=== PATIENT | female | born 1960 | race Two or more races ===

== ENCOUNTER 2021-01-20 21:06 | Inpatient (IN) | payer OTHER ==
[~2021-01-20] VITALS: Ht 160 cm; Wt 65.0 kg
[2021-01-20] MEDS ORDERED: SODIUM CHLORIDE 0.9% 1,000 ML IV ONE ×2 (21:30)
[2021-01-20] MEDS ORDERED: InsuLIN REG 1unit/0.01ml Soln (100units/ml) IV ONE (21:30)
[2021-01-20 22:15] LABS: Basophils # (auto) 0 10 ^3/uL (0-0.2); Basophils % (auto) 0.2 % (0.0-2.0); Eosinophils # (auto) 0 10 ^3/uL (0-0.8); Hematocrit 43.6 % (36.0-46.0); Hemoglobin 15.2 g/dL (12.2-16.2); Lymphocytes # (auto) 1.3 10 ^3/uL (0.4-5.4); Lymphocytes % (auto) 15.4 % (10.0-50.0); Mean Corpuscular Hemoglobin 30.1 pg (28.0-32.0); Mean Corpuscular Volume 86.1 fL (80.0-100.0); Monocytes # (auto) 0.6 10 ^3/uL (0-1.3); Monocytes % (auto) 7.3 % (0.0-12.0); Neutrophils # (auto) 6.4 10 ^3/uL (1.6-8.6); Neutrophils % (auto) 77.1 % (37.0-80.0); Nucleated Red Blood Cells % 0.1 %; Red Blood Cells 5.06 10^6/uL (4.0-5.20); Red Cell Distribution Width 12.9 % (11.8-14.3); White Blood Cell 8.3 10^3/uL (4.4-10.8)
[2021-01-20 22:34] LABS: Chloride 103 mmol/L (98-107); Potassium 3.3 mmol/L (3.5-5.1); Sodium 134 mmol/L (136-145)
[2021-01-20 22:43] LABS: Alanine Aminotransferase 27 U/L (13-56); Albumin 3.1 g/dL (3.4-5.0); Alkaline Phosphatase 170 U/L (45-117); Anion Gap 7 (5-15); Aspartate Aminotransferase 9 U/L (15-37); BUN/Creatinine Ratio 22.9; Bilirubin, Total 0.9 mg/dL (0.2-1.0); Blood Urea Nitrogen 16 mg/dL (7-18); Calcium 9.2 mg/dL (8.5-10.1); Carbon Dioxide 24 mmol/L (21-32); GFR African American 109 mL/min; GFR Non-African American 90 mL/min; Glucose 318 mg/dL (74-106); Lipase 21 U/L (73-393); Magnesium 2.4 mg/dL (1.6-2.6); Total Protein 7.8 g/dL (6.4-8.2)
[2021-01-21] MEDS ORDERED: ALUM & MAG HYDROX-SIMETH LIQ(MAALOX) 30 ML PO PRN (02:15)
[2021-01-21] MEDS ORDERED: TEMAZEPAM 15 MG CAP PO PRN (02:15)
[2021-01-21] MEDS ORDERED: DOCUSATE SOD 100 MG CAP PO PRN (02:15)
[2021-01-21] MEDS ORDERED: LORazepam 0.5 MG TAB PO PRN (02:15)
[2021-01-21] MEDS ORDERED: HYDROcodone-ACET 5/325MG TAB PO PRN (02:15)
[2021-01-21] MEDS ORDERED: ACETAMINOPHEN 325 MG TAB PO PRN (02:15)
[2021-01-21 04:47] LABS: Basophils # (auto) 0 10 ^3/uL (0-0.2); Basophils % (auto) 0.3 % (0.0-2.0); Eosinophils # (auto) 0 10 ^3/uL (0-0.8); Eosinophils % (auto) 0.2 % (0.0-7.0); Hematocrit 46.3 % (36.0-46.0); Lymphocytes # (auto) 1.2 10 ^3/uL (0.4-5.4); Lymphocytes % (auto) 18.7 % (10.0-50.0); Mean Corpuscular Hgb Conc. 34.5 g/dL (32.0-36.0); Monocytes # (auto) 0.5 10 ^3/uL (0-1.3); Monocytes % (auto) 8.1 % (0.0-12.0); Neutrophils # (auto) 4.6 10 ^3/uL (1.6-8.6); Neutrophils % (auto) 72.7 % (37.0-80.0); Nucleated Red Blood Cells % 0.4 %; Red Blood Cells 5.32 10^6/uL (4.0-5.20); White Blood Cell 6.4 10^3/uL (4.4-10.8)
[2021-01-21 05:16] LABS: Calcium 9.5 mg/dL (8.5-10.1)
[2021-01-21 05:22] LABS: BUN/Creatinine Ratio 27.4
[2021-01-21] MEDS: SODIUM CHLORIDE 0.9% 1,000 ML IV SCH ×2 (07:50→18:48)
[2021-01-21] MEDS ORDERED: DEXTROSE (50%) 50ML SYRG IV PRN (12:00)
[2021-01-21] MEDS ORDERED: PANTOPRAZOLE 40 MG TAB PO ONE (12:15)
[2021-01-21] MEDS: ONDANSETRON HCL 4 MG/2 ML VIAL IV PRN (12:39)
[2021-01-21] MEDS ORDERED: MORPHINE SULFATE 10 MG/5 ML ORAL SOLN GT PRN (14:00)
[2021-01-21] MEDS: InsuLIN REG 1unit/0.01ml Soln (100units/ml) SC SCH ×2 (17:10→22:15)
[2021-01-21] MEDS: SUCRALFATE 1 GM/10 ML ORAL SUSP PO SCH ×2 (17:10→22:13)
[2021-01-21] MEDS: ACCU-CHEK COMFORT CURVE STRIP VI SCH ×2 (17:10→22:14)
[2021-01-21] MEDS ORDERED: INSLISPI SC (20:51)
[2021-01-21] MEDS ORDERED: LOSA25TA38 PO (20:51)
[2021-01-21 22:00] VITALS: BP 143/77
[2021-01-22 05:00] VITALS: BP 156/88
[2021-01-22 05:26] LABS: Basophils # (auto) 0 10 ^3/uL (0-0.2); Basophils % (auto) 0.3 % (0.0-2.0); Eosinophils # (auto) 0.1 10 ^3/uL (0-0.8); Eosinophils % (auto) 1.8 % (0.0-7.0); Lymphocytes # (auto) 1.3 10 ^3/uL (0.4-5.4); Lymphocytes % (auto) 23.9 % (10.0-50.0); Mean Corpuscular Hemoglobin 30.2 pg (28.0-32.0); Mean Corpuscular Volume 86.3 fL (80.0-100.0); Monocytes # (auto) 0.5 10 ^3/uL (0-1.3); Monocytes % (auto) 9.2 % (0.0-12.0); Neutrophils # (auto) 3.5 10 ^3/uL (1.6-8.6); Neutrophils % (auto) 64.8 % (37.0-80.0); Red Blood Cells 4.99 10^6/uL (4.0-5.20); Red Cell Distribution Width 12.9 % (11.8-14.3); White Blood Cell 5.4 10^3/uL (4.4-10.8)
[2021-01-22 06:01] LABS: Albumin 2.6 g/dL (3.4-5.0); BUN/Creatinine Ratio 36.8; Calcium 8.5 mg/dL (8.5-10.1); Potassium 3.3 mmol/L (3.5-5.1)
[2021-01-22 06:04] LABS: Bilirubin, Total 0.6 mg/dL (0.2-1.0); Total Protein 6.2 g/dL (6.4-8.2)
[2021-01-22] MEDS: ACCU-CHEK COMFORT CURVE STRIP VI SCH ×4 (06:21→21:06)
[2021-01-22] MEDS: SUCRALFATE 1 GM/10 ML ORAL SUSP PO SCH ×4 (06:28→21:06)
[2021-01-22] MEDS: InsuLIN REG 1unit/0.01ml Soln (100units/ml) SC SCH ×4 (06:35→20:58)
[2021-01-22 09:30] VITALS: BP 174/92
[2021-01-22] MEDS ORDERED: LOSARTAN POTASSIUM 25 MG TAB PO SCH (10:00)
[2021-01-22] MEDS: PANTOPRAZOLE 40 MG TAB PO SCH (10:35)
[2021-01-22] MEDS: ONDANSETRON HCL 4 MG/2 ML VIAL IV PRN ×2 (10:38→14:54)
[2021-01-22] MEDS ORDERED: POTASSIUM EFFERVESENT TAB 25 MEQ PO ONE (14:30)
[2021-01-22] MEDS: MORPHINE SULF INJ 2 MG/ML SYRINGE 1ML IV PRN ×2 (14:54→21:23)
[2021-01-22] MEDS: SODIUM CHLORIDE 0.9% 1,000 ML IV SCH ×2 (14:55→16:25)
[2021-01-22] MEDS ORDERED: POTASSIUM CHL 20 Meq TABLET PO ONE (16:30)
[2021-01-22] MEDS: Glucerna Carbsteady SHAKE Vanilla 8oz PO SCH (17:58)
[2021-01-22 18:00] VITALS: BP 172/81
[2021-01-22] MEDS ORDERED: LOSARTAN POTASSIUM 25 MG TAB PO ONE (18:00)
[2021-01-22] MEDS ORDERED: AML5T PO (19:24)
[2021-01-22] MEDS ORDERED: amLODIPine BESYLATE 5 MG TAB PO ONE (20:00)
[2021-01-22 22:00] VITALS: BP 152/88
[2021-01-23 05:00] VITALS: BP 118/59
[2021-01-23 06:01] LABS: Basophils # (auto) 0 10 ^3/uL (0-0.2); Basophils % (auto) 0.3 % (0.0-2.0); Eosinophils # (auto) 0.1 10 ^3/uL (0-0.8); Eosinophils % (auto) 2.4 % (0.0-7.0); Hematocrit 38.4 % (36.0-46.0); Hemoglobin 13.5 g/dL (12.2-16.2); Lymphocytes # (auto) 1.2 10 ^3/uL (0.4-5.4); Lymphocytes % (auto) 25.9 % (10.0-50.0); Mean Corpuscular Hemoglobin 30.3 pg (28.0-32.0); Mean Corpuscular Hgb Conc. 35.2 g/dL (32.0-36.0); Mean Corpuscular Volume 86.1 fL (80.0-100.0); Monocytes # (auto) 0.4 10 ^3/uL (0-1.3); Monocytes % (auto) 9.1 % (0.0-12.0); Neutrophils # (auto) 2.8 10 ^3/uL (1.6-8.6); Neutrophils % (auto) 62.3 % (37.0-80.0); Nucleated Red Blood Cells % 0.1 %; Red Blood Cells 4.46 10^6/uL (4.0-5.20); Red Cell Distribution Width 13.1 % (11.8-14.3); White Blood Cell 4.6 10^3/uL (4.4-10.8)
[2021-01-23 06:25] LABS: Potassium 4.9 mmol/L (3.5-5.1)
[2021-01-23 06:38] LABS: Albumin 2.2 g/dL (3.4-5.0); BUN/Creatinine Ratio 22.2; Bilirubin, Total 0.8 mg/dL (0.2-1.0); Calcium 8.8 mg/dL (8.5-10.1); Total Protein 5.8 g/dL (6.4-8.2)
[2021-01-23] MEDS: ACCU-CHEK COMFORT CURVE STRIP VI SCH ×3 (06:41→17:19)
[2021-01-23] MEDS: InsuLIN REG 1unit/0.01ml Soln (100units/ml) SC SCH ×3 (06:41→18:10)
[2021-01-23] MEDS: SUCRALFATE 1 GM/10 ML ORAL SUSP PO SCH ×3 (06:41→17:19)
[2021-01-23] MEDS: Glucerna Carbsteady SHAKE Vanilla 8oz PO SCH ×3 (08:00→17:20)
[2021-01-23 09:00] VITALS: BP 130/72
[2021-01-23] MEDS: PANTOPRAZOLE 40 MG TAB PO SCH (09:54)
[2021-01-23] MEDS: MORPHINE SULF INJ 2 MG/ML SYRINGE 1ML IV PRN (09:56)
[2021-01-23] MEDS ORDERED: LOSARTAN POTASSIUM 25 MG TAB PO SCH (10:00)
[2021-01-23] MEDS ORDERED: amLODIPine BESYLATE 5 MG TAB PO SCH (10:00)
[2021-01-23 13:00] VITALS: BP 132/80
[2021-01-23 16:06] VITALS: BP 130/72
[2021-01-23 16:44] VITALS: BP 97/60
== END 2021-01-23 19:30 | disposition home or self-care (01) | DRG 435 ==
LOC: ER 21:12 → OVERFLOW 01-21 02:04 → WEST WING 01-21 18:21
PROVIDERS: ADMIT Hospitalist; ATTEND Internal Medicine
DX: C25.9 Malignant neoplasm of pancreas, unspecified (principal); N17.0 Acute kidney failure with tubular necrosis; K85.90 Acute pancreatitis without necrosis or infection, unspecified; E44.1 Mild protein-calorie malnutrition; E87.1 Hypo-osmolality and hyponatremia; E11.65 Type 2 diabetes mellitus with hyperglycemia; E11.22 Type 2 diabetes mellitus with diabetic chronic kidney disease; E87.6 Hypokalemia; I12.9 Hypertensive chronic kidney disease with stage 1 through stage 4 chronic kidney disease, or unspecified chronic kidney disease; N18.9 Chronic kidney disease, unspecified; Z85.07 Personal history of malignant neoplasm of pancreas; Z20.822 Contact with and (suspected) exposure to COVID-19; Z68.25 Body mass index [BMI] 25.0-25.9, adult
CPT/HCPCS: 36415; 71046; 74176; 80048; 80053; 80061; 82010; 82962; 83036; 83690; 83735; 84443; 84484; 85025; 87426; 93005; 96372; 96374; G0378; J1815; J2405